=== PATIENT | male | born 1945 | race Caucasian/White ===

== ENCOUNTER 2019-02-08 10:09 | Inpatient (IN) | payer MEDICARE, OTHER, MEDICAID ==
[2019-02-08 10:41] LABS: ADD MAN DIFF? NO
[2019-02-08] MEDS: IPRATROPIUM (NEB) 0.5 MG/2.5 ML AMP INH (11:01)
[2019-02-08] MEDS: ALBUTEROL 0.5% (NEB) 2.5 MG/0.5 ML AMP INH (11:02)
[2019-02-08 11:03] LABS: ANION GAP 8 (5-13); BLOOD UREA NITROGEN 16 mg/dl (7-20); CALCIUM 8.1 mg/dl (8.4-10.2); CARBON DIOXIDE 23 mmol/L (21-31); CHLORIDE 101 mmol/L (97-110); CREATININE 0.62 mg/dl (0.61-1.24); GLUCOSE 183 mg/dl (70-220); INR 1.37; POTASSIUM 3.9 mmol/L (3.5-5.1); PT RATIO 1.3; SODIUM 132 mmol/L (135-144)
[2019-02-08] MEDS: DILTIAZEM 25 MG INJ IV (11:04)
[2019-02-08] MEDS: CEFTRIAXONE 1 GM/50 ML (PMX) 50 ML IVPB (11:05)
[2019-02-08 11:06] LABS: BASOPHILS % 0.1 % (0.0-2.0); EOSINOPHILS % 0.3 % (0.0-7.0); HEMATOCRIT 33.1 % (42.0-52.0); HEMOGLOBIN 10.1 g/dl (14.0-18.0); LYMPHOCYTES # 0.9 10^3/ul (0.8-2.9); LYMPHOCYTES % 10.5 % (15.0-51.0); MEAN CORPUSCULAR HEMOGLOBIN 24.5 pg (29.0-33.0); MEAN CORPUSCULAR HGB CONC 30.5 g/dl (32.0-37.0); MEAN CORPUSCULAR VOLUME 80.3 fl (82.0-101.0); MEAN PLATELET VOLUME 8.3 fl (7.4-10.4); MONOCYTE # 0.9 10^3/ul (0.3-0.9); NEUTROPHIL # 6.8 10^3/ul (1.6-7.5); NEUTROPHILS % 78.9 % (39.0-77.0); PLATELET COUNT 410 10^3/UL (140-415); RED BLOOD COUNT 4.12 10^6/ul (4.70-6.10); RED CELL DISTRIBUTION WIDTH 17.5 % (11.5-14.5)
[2019-02-08 11:06] LABS: WHITE BLOOD COUNT 8.6 10^3/ul (4.8-10.8)
[2019-02-08 11:15] LABS: B-TYPE NATRIURETIC PEPTIDE 2880 PG/ML (0-125); TROPONIN-I < 0.012 ng/ml (0.000-0.120)
[2019-02-08] MEDS: SOD CHLORIDE 0.9% 1,000 ML IV (11:16)
[2019-02-08] MEDS: AZITHROMYCIN 500MG/NS (PMX) 250 ML IV (11:51)
[2019-02-08] MEDS ORDERED: ONDANSETRON 4 MG INJ IV ×2 (12:30→14:30)
[2019-02-08] MEDS ORDERED: ACETAMINOPHEN 325 MG TAB PO (12:30)
[2019-02-08] MEDS: DILTIAZEM-D5W 125MG/125ML DRIP 125 ML IV (13:17)
[2019-02-08 13:25] LABS: LACTIC ACID 2.1 mmol/L (0.5-2.0)
[2019-02-08] MEDS ORDERED: NACL 0.9% 3 ML SYG IV (14:30)
[2019-02-08] MEDS ORDERED: BISACODYL 10 MG SUPP PR (14:30)
[2019-02-08] MEDS ORDERED: SENNA TAB PO (14:30)
[2019-02-08 15:23] LABS: LACTIC ACID 1.6 mmol/L (0.5-2.0)
[2019-02-08] MEDS: FENTAnyl PATCH 12 MCG/HR TRANSDERM (15:30)
[2019-02-08] MEDS: FUROSEMIDE 20 MG INJ IV ×2 (17:15→21:51)
[2019-02-08] MEDS: ALBUTEROL 0.083% (NEB) 2.5 MG/3 ML AMP NEB (22:10)
[2019-02-08 22:57] LABS: ADD UMIC NO; UR ASCORBIC ACID NEGATIVE (NEGATIVE); UR BILIRUBIN (Dip) NEGATIVE (NEGATIVE); UR BLOOD (Dip) NEGATIVE (NEGATIVE); UR CLARITY CLEAR (CLEAR); UR COLOR YELLOW (YELLOW); UR GLUCOSE (Dip) NEGATIVE (NEGATIVE); UR KETONES (Dip) NEGATIVE (NEGATIVE); UR LEUKOCYTE ESTERASE (Dip) NEGATIVE Leu/ul (NEGATIVE); UR NITRITE (Dip) NEGATIVE (NEGATIVE); UR SPECIFIC GRAVITY (Dip) 1.009 (1.003-1.030); UR TOTAL PROTEIN (Dip) NEGATIVE (NEGATIVE); UR UROBILINOGEN (Dip) NEGATIVE (NEGATIVE)
[2019-02-09] MEDS: AMIODARONE 900 MG in DEXTROSE 5% 482 ML IV (03:08)
[2019-02-09] MEDS ORDERED: PENDING SANTYL ORDER FOR WOUND CARE XX (04:00)
[2019-02-09] MEDS: PANTOPRAZOLE (EC) 40 MG TAB PO ×2 (06:00→09:54)
[2019-02-09] MEDS ORDERED: FUROSEMIDE 40 MG TAB PO (09:00)
[2019-02-09] MEDS ORDERED: NON-FORMULARY/PATIENT OWN MED (Umeclidinium Brm-Vilanterol Tr (Anoro Ellipta) 1 EACH) INHALATION (09:00)
[2019-02-09] MEDS: ASPIRIN 81 MG TAB PO (09:53)
[2019-02-09] MEDS: FUROSEMIDE 20 MG INJ IV ×2 (09:53→20:35)
[2019-02-09] MEDS: FOLIC ACID 1 MG TAB PO (09:54)
[2019-02-09] MEDS: ENOXAPARIN 40 MG/0.4 ML SYG SC (09:56)
[2019-02-09] MEDS: MAGNESIUM HYDROXIDE 30ML CUP PO (09:57)
[2019-02-09] MEDS ORDERED: CEFTRIAXONE 1 GM/50 ML (PMX) 50 ML IVPB (11:00)
[2019-02-09] MEDS: AMIODARONE 200 MG TAB PO ×2 (11:56→20:35)
[2019-02-09] MEDS ORDERED: AZITHROMYCIN 500MG/NS (PMX) 250 ML IVPB (12:00)
[2019-02-09 15:23] LABS: ADD MAN DIFF? NO
[2019-02-09 15:25] LABS: WHITE BLOOD COUNT 9.5 10^3/ul (4.8-10.8)
[2019-02-09 15:25] LABS: BASOPHILS % 0.1 % (0.0-2.0); EOSINOPHILS % 0.4 % (0.0-7.0); HEMATOCRIT 30.3 % (42.0-52.0); HEMOGLOBIN 9.3 g/dl (14.0-18.0); LYMPHOCYTES # 0.9 10^3/ul (0.8-2.9); MEAN CORPUSCULAR HEMOGLOBIN 25.1 pg (29.0-33.0); MEAN CORPUSCULAR HGB CONC 30.7 g/dl (32.0-37.0); MEAN CORPUSCULAR VOLUME 81.7 fl (82.0-101.0); MEAN PLATELET VOLUME 8.2 fl (7.4-10.4); MONOCYTES % 10.3 % (0.0-11.0); NEUTROPHIL # 7.6 10^3/ul (1.6-7.5); NEUTROPHILS % 79.9 % (39.0-77.0); PLATELET COUNT 392 10^3/UL (140-415); RED BLOOD COUNT 3.71 10^6/ul (4.70-6.10); RED CELL DISTRIBUTION WIDTH 17.3 % (11.5-14.5)
[2019-02-09] MEDS: [UNRECOGNIZED DRUG - OTHER] XX ×2 (15:30→23:30)
[2019-02-09 15:46] LABS: ALANINE AMINOTRANSFERASE 31 IU/L (13-69); ALBUMIN/GLOBULIN RATIO 0.83; ALKALINE PHOSPHATASE 133 IU/L (42-121); ANION GAP 7 (5-13); ASPARTATE AMINO TRANSFERASE 26 IU/L (15-46); BILIRUBIN,INDIRECT 0.4 mg/dl (0-1.1); BILIRUBIN,TOTAL 0.4 mg/dl (0.2-1.3); BLOOD UREA NITROGEN 15 mg/dl (7-20); CALCIUM 7.6 mg/dl (8.4-10.2); CARBON DIOXIDE 23 mmol/L (21-31); CHLORIDE 101 mmol/L (97-110); CREATININE 0.63 mg/dl (0.61-1.24); GLUCOSE 158 mg/dl (70-220); MAGNESIUM 2.4 mg/dl (1.7-2.5); PHOSPHORUS 2.9 mg/dl (2.5-4.9); POTASSIUM 3.4 mmol/L (3.5-5.1); SODIUM 131 mmol/L (135-144); TOTAL PROTEIN 6.6 g/dl (6.1-8.1)
[2019-02-09 15:46] LABS: HEMOGLOBIN A1C 5.4 % (0-5.9)
[2019-02-10] MEDS: HYDROCODONE/APAP (5/325) TAB PO ×2 (05:23→14:14)
[2019-02-10] MEDS: [UNRECOGNIZED DRUG - OTHER] XX ×3 (07:30→23:30)
[2019-02-10] MEDS: MAGNESIUM HYDROXIDE 30ML CUP PO (08:51)
[2019-02-10] MEDS: FOLIC ACID 1 MG TAB PO (08:51)
[2019-02-10] MEDS: ASPIRIN 81 MG TAB PO (08:51)
[2019-02-10] MEDS: FUROSEMIDE 40 MG TAB PO (08:52)
[2019-02-10] MEDS: AMIODARONE 200 MG TAB PO ×2 (08:53→21:34)
[2019-02-10] MEDS: METOPROLOL (XL) 25 MG TAB PO (08:53)
[2019-02-10] MEDS: POTASSIUM CHLORIDE 20 MEQ POWDER FOR ORAL SOLN PO (08:53)
[2019-02-11] MEDS: HYDROCODONE/APAP (5/325) TAB PO ×4 (01:19→21:23)
[2019-02-11] MEDS: PANTOPRAZOLE (EC) 40 MG TAB PO (06:27)
[2019-02-11] MEDS: [UNRECOGNIZED DRUG - OTHER] XX ×3 (07:30→23:30)
[2019-02-11] MEDS: FOLIC ACID 1 MG TAB PO (09:04)
[2019-02-11] MEDS: MAGNESIUM HYDROXIDE 30ML CUP PO (09:04)
[2019-02-11] MEDS: FUROSEMIDE 40 MG TAB PO (09:04)
[2019-02-11] MEDS: ASPIRIN 81 MG TAB PO (09:04)
[2019-02-11] MEDS: AMIODARONE 200 MG TAB PO ×2 (09:05→21:16)
[2019-02-11] MEDS: METOPROLOL (XL) 25 MG TAB PO (09:05)
[2019-02-11] MEDS: FENTAnyl PATCH 12 MCG/HR TRANSDERM (16:51)
[2019-02-12] MEDS: HYDROCODONE/APAP (5/325) TAB PO ×4 (01:43→20:52)
[2019-02-12] MEDS: PANTOPRAZOLE (EC) 40 MG TAB PO (05:42)
[2019-02-12] MEDS: [UNRECOGNIZED DRUG - OTHER] XX ×3 (07:30→23:30)
[2019-02-12] MEDS: MAGNESIUM HYDROXIDE 30ML CUP PO (09:00)
[2019-02-12] MEDS: ASPIRIN 81 MG TAB PO (09:13)
[2019-02-12] MEDS: METOPROLOL (XL) 25 MG TAB PO (09:13)
[2019-02-12] MEDS: AMIODARONE 200 MG TAB PO ×2 (09:13→20:53)
[2019-02-12] MEDS: FUROSEMIDE 40 MG TAB PO (09:13)
[2019-02-12] MEDS: FOLIC ACID 1 MG TAB PO (09:13)
[2019-02-13] MEDS: PANTOPRAZOLE (EC) 40 MG TAB PO (06:08)
[2019-02-13] MEDS: [UNRECOGNIZED DRUG - OTHER] XX ×2 (07:30→15:30)
[2019-02-13] MEDS: FUROSEMIDE 40 MG TAB PO (09:53)
[2019-02-13] MEDS: AMIODARONE 200 MG TAB PO (09:56)
[2019-02-13] MEDS: ASPIRIN 81 MG TAB PO (09:57)
[2019-02-13] MEDS: METOPROLOL (XL) 25 MG TAB PO (09:57)
[2019-02-13] MEDS: MAGNESIUM HYDROXIDE 30ML CUP PO (09:57)
[2019-02-13] MEDS: FOLIC ACID 1 MG TAB PO (09:57)
[2019-02-13] MEDS: HYDROCODONE/APAP (5/325) TAB PO ×2 (09:59→13:07)
[2019-02-13] MEDS: HYDROmorphONE 2 MG TAB PO ×2 (11:23→13:51)
[2019-02-13] MEDS ORDERED: POTASSIUM CHLORIDE (SR) 20 MEQ TAB PO (11:41)
[2019-02-13] MEDS: POTASSIUM CHLORIDE 20 MEQ POWDER FOR ORAL SOLN PO (13:07)
== END 2019-02-13 18:26 | DRG 308 ==
LOC: E/R 10:09 → MS1 02-13 00:20 → TEL 12:06
PROVIDERS: Internal Medicine
DX: I48.92 Unspecified atrial flutter (principal); I50.23 Acute on chronic systolic (congestive) heart failure; J91.0 Malignant pleural effusion; C78.7 Secondary malignant neoplasm of liver and intrahepatic bile duct; C78.00 Secondary malignant neoplasm of unspecified lung; C79.31 Secondary malignant neoplasm of brain; J44.1 Chronic obstructive pulmonary disease with (acute) exacerbation; E87.70 Fluid overload, unspecified; C80.1 Malignant (primary) neoplasm, unspecified; R54 Age-related physical debility; I25.10 Atherosclerotic heart disease of native coronary artery without angina pectoris; S42.001A Fracture of unspecified part of right clavicle, initial encounter for closed fracture; G89.3 Neoplasm related pain (acute) (chronic); Z87.891 Personal history of nicotine dependence; Z95.5 Presence of coronary angioplasty implant and graft
CPT/HCPCS: 36415; 71045; 80048; 80053; 81003; 83036; 83605; 83735; 83880; 84100; 84443; 84484; 85025; 85610; 87040-91; 87081; 87086; 92526; 92610; 93005; 93306; 93971; 94644; 94664; 96361; 96374; 96375; 97162; 97530; 99285-25

== ENCOUNTER 2019-03-01 21:36 | Inpatient (IN) | payer MEDICARE, OTHER ==
[~2019-03-01 21:36] MED LIST: ETOMIDATE 20 MG INJ; ROCURONIUM 50 MG INJ
[2019-03-01] MEDS: PROPOFOL 100 ML IV (21:51)
[2019-03-01] MEDS: metroNIDAZOLE 500 MG/NS (PMX) 100 ML IVPB (21:51)
[2019-03-01] MEDS: VANCOMYCIN 1 GM (PMX) 250 ML IVPB (21:51)
[2019-03-01 22:03] LABS: WHITE BLOOD COUNT 30.4 10^3/ul (4.8-10.8)
[2019-03-01 22:03] LABS: ABNORMAL IP MESSAGE 1; HEMATOCRIT 42.9 % (42.0-52.0); MEAN CORPUSCULAR HEMOGLOBIN 24.6 pg (29.0-33.0); MEAN CORPUSCULAR HGB CONC 30.3 g/dl (32.0-37.0); MEAN CORPUSCULAR VOLUME 81.1 fl (82.0-101.0); MEAN PLATELET VOLUME 9.3 fl (7.4-10.4); PLATELET COUNT 239 10^3/UL (140-415); POSITIVE DIFF @See below; RED BLOOD COUNT 5.29 10^6/ul (4.70-6.10); RED CELL DISTRIBUTION WIDTH 18.5 % (11.5-14.5)
[2019-03-01 22:09] LABS: ADD MAN DIFF? YES
[2019-03-01 22:10] LABS: PATH REVIEW? YES
[2019-03-01 22:20] LABS: ALANINE AMINOTRANSFERASE 17 IU/L (13-69); ALBUMIN 2.1 g/dl (3.3-4.9); ALBUMIN/GLOBULIN RATIO 0.77; ALKALINE PHOSPHATASE 117 IU/L (42-121); ANION GAP 10 (5-13); ASPARTATE AMINO TRANSFERASE 17 IU/L (15-46); BILIRUBIN,INDIRECT 0.3 mg/dl (0-1.1); BILIRUBIN,TOTAL 0.3 mg/dl (0.2-1.3); BLOOD UREA NITROGEN 49 mg/dl (7-20); CALCIUM 7.2 mg/dl (8.4-10.2); CARBON DIOXIDE 21 mmol/L (21-31); CHLORIDE 113 mmol/L (97-110); CREATININE 0.87 mg/dl (0.61-1.24); GLUCOSE 181 mg/dl (70-220); POTASSIUM 4.8 mmol/L (3.5-5.1); SODIUM 144 mmol/L (135-144); TOTAL PROTEIN 4.8 g/dl (6.1-8.1)
[2019-03-01] MEDS: SODIUM CHLORIDE 0.9% 1L BAG IV* (22:20)
[2019-03-01] MEDS: ACETAMINOPHEN 650MG/20.3ML CUP NGT (22:21)
[2019-03-01] MEDS ORDERED: MIDAZOLAM 1 MG/ML 2 ML INJ (22:21)
[2019-03-01] MEDS: CEFEPIME 2GM/50 ML (PMX) 50 ML IVPB (22:21)
[2019-03-01 22:24] LABS: INR 1.51; PROTIME 18.3 Sec (11.9-14.9); PT RATIO 1.4
[2019-03-01 22:25] LABS: PARTIAL THROMBOPLASTIN TIME 26.5 Sec (23.0-35.0)
[2019-03-01] MEDS: MIDAZOLAM 1 MG/ML 2 ML INJ IV (22:30)
[2019-03-01 22:31] LABS: TROPONIN-I < 0.012 ng/ml (0.000-0.120)
[2019-03-01 22:50] LABS: ADD UMIC YES; UR ASCORBIC ACID 40 mg/dL (NEGATIVE); UR BILIRUBIN (Dip) NEGATIVE (NEGATIVE); UR BLOOD (Dip) NEGATIVE (NEGATIVE); UR CLARITY SLIGHTLY CLOUDY (CLEAR); UR COLOR AMBER (YELLOW); UR GLUCOSE (Dip) NEGATIVE (NEGATIVE); UR KETONES (Dip) NEGATIVE (NEGATIVE); UR LEUKOCYTE ESTERASE (Dip) TRACE Leu/ul (NEGATIVE); UR NITRITE (Dip) NEGATIVE (NEGATIVE); UR RBC 4 /HPF (0-5); UR SPECIFIC GRAVITY (Dip) 1.024 (1.003-1.030); UR TOTAL PROTEIN (Dip) NEGATIVE (NEGATIVE); UR UROBILINOGEN (Dip) 1+ mg/dL (NEGATIVE); UR WBC 4 /HPF (0-5)
[2019-03-01 22:57] LABS: ANISOCYTOSIS 1+ (0-0); BAND NEUTROPHILS #M 6.3 10^3/ul (0.0-0.6); BAND NEUTROPHILS % (M) 21 % (0-4); LYMPHOCYTES #M 0.6 10^3/ul (0.8-2.9); LYMPHOCYTES % (M) 2 % (15-51); METAMYELOCYTES #M 0.3 10^3/ul (0.0-0.0); METAMYELOCYTES %M 1 % (0-0); MONOCYTE #M 0.3 10^3/ul (0.3-0.9); MONOCYTES % (M) 1 % (0-11); PLATELET ESTIMATE NORMAL; POIKILOCYTOSIS 2+ (0-0); POLYCHROMASIA 3+ (0-0); SEG NEUT #M 24.7 10^3/ul (1.6-7.5); SEGMENTED NEUTROPHILS (M) % 75 % (39-77); SMUDGE%M 5 % (0-0)
[2019-03-01] MEDS: NORepinephrine 8MG/250 ML (PMX 250 ML IV (23:00)
[2019-03-02 00:03] LABS: AADO2 Arterial 336.7 mmHg (7.0-24.0); Arterial Base Excess -9.7 mmol/L (-3.0-3); Arterial Blood Gas Oxygen Sat 99.3 mmHG (95.0-100.0); Arterial COHb 0.6 % (0.0-3.0); Arterial Fraction of Oxyhgb 98.6 % (93.0-99.0); Arterial HCO3 18.4 mmol/L (22.0-26.0); Arterial MetHb 0.1 % (0.0-1.5); Arterial pCO2 49.4 mmhg (35-45); MODE VENT - AC; Site LB
[2019-03-02 00:36] LABS: LACTIC ACID 0.7 mmol/L (0.5-2.0)
[2019-03-02] MEDS: DEXTROSE 5%-0.45% NACL 1,000 ML IV ×3 (00:57→20:43)
[2019-03-02] MEDS ORDERED: ONDANSETRON 4 MG INJ IV (01:00)
[2019-03-02] MEDS ORDERED: ACETAMINOPHEN 650MG/20.3ML CUP PO (01:00)
[2019-03-02] MEDS ORDERED: ALBUTEROL HFA 8 GM INHALER INH (01:00)
[2019-03-02] MEDS ORDERED: IPRATROPIUM (HFA) 12.9 GM INHALER INH (01:00)
[2019-03-02 01:40] LABS: HEMOGLOBIN A1C 5.7 % (0-5.9)
[2019-03-02 03:43] LABS: LACTIC ACID 3.9 mmol/L (0.5-2.0)
[2019-03-02] MEDS ORDERED: PHENYLephrine 20MG IN 250 ML 250 ML ×2 (04:13→08:22)
[2019-03-02] MEDS: ASPIRIN 81 MG TAB PO ×2 (04:54→08:42)
[2019-03-02] MEDS: PIPER-TAZO 3.375 GM IV (PMX) 100 ML IVPB ×3 (05:21→17:26)
[2019-03-02] MEDS: PANTOPRAZOLE 40 MG INJ IV (05:21)
[2019-03-02] MEDS: SOD CHLORIDE 0.9% 500 ML IV (05:23)
[2019-03-02 05:25] LABS: WHITE BLOOD COUNT 48.9 10^3/ul (4.8-10.8)
[2019-03-02 05:25] LABS: ABNORMAL IP MESSAGE 1; HEMATOCRIT 43.9 % (42.0-52.0); HEMOGLOBIN 13.1 g/dl (14.0-18.0); MEAN CORPUSCULAR HEMOGLOBIN 24.6 pg (29.0-33.0); MEAN CORPUSCULAR HGB CONC 29.8 g/dl (32.0-37.0); MEAN CORPUSCULAR VOLUME 82.4 fl (82.0-101.0); MEAN PLATELET VOLUME 10.1 fl (7.4-10.4); PLATELET COUNT 259 10^3/UL (140-415); POSITIVE DIFF @See below; RED BLOOD COUNT 5.33 10^6/ul (4.70-6.10); RED CELL DISTRIBUTION WIDTH 18.7 % (11.5-14.5)
[2019-03-02 05:33] LABS: ADD MAN DIFF? YES
[2019-03-02 05:52] LABS: ALANINE AMINOTRANSFERASE 24 IU/L (13-69); ALBUMIN 1.9 g/dl (3.3-4.9); ALBUMIN/GLOBULIN RATIO 0.79; ALKALINE PHOSPHATASE 120 IU/L (42-121); ANION GAP 7 (5-13); ASPARTATE AMINO TRANSFERASE 14 IU/L (15-46); BILIRUBIN,INDIRECT 0.3 mg/dl (0-1.1); BILIRUBIN,TOTAL 0.3 mg/dl (0.2-1.3); BLOOD UREA NITROGEN 48 mg/dl (7-20); CALCIUM 6.9 mg/dl (8.4-10.2); CARBON DIOXIDE 21 mmol/L (21-31); CHLORIDE 114 mmol/L (97-110); CREATININE 1.24 mg/dl (0.61-1.24); GLUCOSE 186 mg/dl (70-220); MAGNESIUM 3.1 mg/dl (1.7-2.5); PHOSPHORUS 4.4 mg/dl (2.5-4.9); POTASSIUM 4.8 mmol/L (3.5-5.1); SODIUM 142 mmol/L (135-144); TOTAL PROTEIN 4.3 g/dl (6.1-8.1)
[2019-03-02 06:18] LABS: LACTIC ACID 4.1 mmol/L (0.5-2.0)
[2019-03-02] MEDS ORDERED: VANCOMYCIN 1.5 GM/NS 250 ML 250 ML IVPB (07:00)
[2019-03-02 07:24] LABS: AADO2 Arterial 287.5 mmHg (7.0-24.0); Allen Test ACCEPTAB; Arterial Base Excess -10.4 mmol/L (-3.0-3); Arterial Blood Gas Oxygen Sat 96.6 mmHG (95.0-100.0); Arterial COHb 0.8 % (0.0-3.0); Arterial Fraction of Oxyhgb 95.5 % (93.0-99.0); Arterial HCO3 16.1 mmol/L (22.0-26.0); Arterial MetHb 0.3 % (0.0-1.5); Arterial pCO2 37.9 mmhg (35-45); MODE VENT - AC; Site Right Radial
[2019-03-02 08:03] LABS: ANISOCYTOSIS 1+ (0-0); BAND NEUTROPHILS #M 16.6 10^3/ul (0.0-0.6); BAND NEUTROPHILS % (M) 34 % (0-4); BURR CELLS 3+ (0-0); LYMPHOCYTES #M 0.4 10^3/ul (0.8-2.9); LYMPHOCYTES % (M) 1 % (15-51); MONOCYTE #M 0.4 10^3/ul (0.3-0.9); MONOCYTES % (M) 1 % (0-11); MYELOCYTES #M 0.9 10^3/ul (0.0-0.0); MYELOCYTES % (M) 2 % (0-0); PLATELET ESTIMATE NORMAL; POIKILOCYTOSIS 3+ (0-0); POLYCHROMASIA 3+ (0-0); SEG NEUT #M 38.4 10^3/ul (1.6-7.5); SEGMENTED NEUTROPHILS (M) % 62 % (39-77); SMUDGE%M 47 % (0-0)
[2019-03-02 08:04] LABS: TOXIC GRANULATION 3+ (0-0)
[2019-03-02] MEDS: AMIODARONE 200 MG TAB PO (08:43)
[2019-03-02] MEDS ORDERED: VANCOMYCIN IV PER PHARMACY XX (09:00)
[2019-03-02] MEDS: HEPARIN 5,000 UNIT/1 ML VIAL SC ×2 (12:13→20:58)
[2019-03-02] MEDS: PHENYLephrine 80 MG in DEXTROSE 5% 242 ML IV ×3 (13:01→22:02)
[2019-03-02] MEDS: NORepinephrine 32 MG in DEXTROSE 5% 218 ML IV (13:11)
[2019-03-02] MEDS: VASOPRESSIN 60 UNIT in DEXTROSE 5% 57 ML IV ×2 (14:00→20:59)
[2019-03-02] MEDS: VANCOMYCIN 1.5 GM/NS 250 ML 250 ML IVPB (16:24)
[2019-03-02] MEDS ORDERED: VANCOMYCIN 1 GM 250 ML IVPB (19:00)
[2019-03-03] MEDS: PIPER-TAZO 3.375 GM IV (PMX) 100 ML IVPB ×4 (00:30→18:19)
[2019-03-03] MEDS: DEXTROSE 5%-0.45% NACL 1,000 ML IV ×2 (01:39→15:42)
[2019-03-03] MEDS: PHENYLephrine 80 MG in DEXTROSE 5% 242 ML IV ×4 (02:20→15:52)
[2019-03-03] MEDS: NORepinephrine 32 MG in DEXTROSE 5% 218 ML IV (03:26)
[2019-03-03 05:07] LABS: ADD MAN DIFF? NO
[2019-03-03 05:10] LABS: ABNORMAL IP MESSAGE 1; BASOPHIL # 0.1 10^3/ul (0.0-0.1); BASOPHILS % 0.5 % (0.0-2.0); HEMATOCRIT 41.9 % (42.0-52.0); HEMOGLOBIN 12.3 g/dl (14.0-18.0); LYMPHOCYTES # 0.9 10^3/ul (0.8-2.9); MEAN CORPUSCULAR HEMOGLOBIN 24.8 pg (29.0-33.0); MEAN CORPUSCULAR HGB CONC 29.4 g/dl (32.0-37.0); MEAN CORPUSCULAR VOLUME 84.6 fl (82.0-101.0); MEAN PLATELET VOLUME 10.1 fl (7.4-10.4); MONOCYTE # 1.4 10^3/ul (0.3-0.9); MONOCYTES % 4.8 % (0.0-11.0); NEUTROPHIL # 25.3 10^3/ul (1.6-7.5); NEUTROPHILS % 87.9 % (39.0-77.0); NUCLEATED RED BLOOD CELLS% 0.1 /100WBC (0.0-0.0); PLATELET COUNT 172 10^3/UL (140-415); POSITIVE DIFF @See below; RED BLOOD COUNT 4.95 10^6/ul (4.70-6.10); RED CELL DISTRIBUTION WIDTH 18.3 % (11.5-14.5)
[2019-03-03 05:10] LABS: WHITE BLOOD COUNT 28.8 10^3/ul (4.8-10.8)
[2019-03-03 05:35] LABS: CREATININE 1.53 mg/dl (0.61-1.24)
[2019-03-03 05:35] LABS: BLOOD UREA NITROGEN 61 mg/dl (7-20)
[2019-03-03] MEDS: PANTOPRAZOLE 40 MG INJ IV (06:11)
[2019-03-03] MEDS: AMIODARONE 200 MG TAB PO (09:00)
[2019-03-03] MEDS: ASPIRIN 81 MG TAB PO (09:00)
[2019-03-03] MEDS: HEPARIN 5,000 UNIT/1 ML VIAL SC ×2 (09:26→20:47)
[2019-03-03] MEDS: ACETAMINOPHEN 650 MG SUPP PR ×2 (09:29→16:14)
[2019-03-03 10:21] LABS: ANION GAP 7 (5-13); BLOOD UREA NITROGEN 49 mg/dl (7-20); CARBON DIOXIDE 14 mmol/L (21-31); CHLORIDE 101 mmol/L (97-110); CREATININE 1.11 mg/dl (0.61-1.24); SODIUM 122 mmol/L (135-144)
[2019-03-03 11:05] LABS: GLUCOSE 728 mg/dl (70-220)
[2019-03-03 11:07] LABS: CALCIUM 4.6 mg/dl (8.4-10.2)
[2019-03-03] MEDS: CALCIUM GLUCONATE 10% 2 GM in DEXTROSE 5% 100 ML IVPB (13:44)
[2019-03-03] MEDS: VASOPRESSIN 60 UNIT in DEXTROSE 5% 57 ML IV (14:00)
[2019-03-03] MEDS: ARTIFICIAL TEARS 15 ML OPH BOTH EYES (20:43)
[2019-03-03] MEDS: NORepinephrine 32 MG in SOD CHLORIDE 0.9% 218 ML IV (20:47)
[2019-03-03] MEDS: VASOPRESSIN 60 UNIT in SOD CHLORIDE 0.9% 57 ML IV (20:47)
[2019-03-03] MEDS: PHENYLephrine 80 MG in SOD CHLORIDE 0.9% 242 ML IV (20:47)
[2019-03-04] MEDS: PIPER-TAZO 3.375 GM IV (PMX) 100 ML IVPB ×3 (00:34→11:30)
[2019-03-04] MEDS: PHENYLephrine 80 MG in SOD CHLORIDE 0.9% 242 ML IV ×3 (00:36→09:41)
[2019-03-04] MEDS: DEXTROSE 5%-0.45% NACL 1,000 ML IV (03:42)
[2019-03-04] MEDS: PANTOPRAZOLE 40 MG INJ IV (05:33)
[2019-03-04 06:25] LABS: ADD MAN DIFF? NO
[2019-03-04] MEDS: DEXTROSE 5%-0.9% NACL 1,000 ML IV (06:31)
[2019-03-04] MEDS: ALTEPLASE (CATHFLO) 2 MG INJ CATHETER (06:37)
[2019-03-04 06:38] LABS: ABNORMAL IP MESSAGE 1; HEMATOCRIT 41.7 % (42.0-52.0); HEMOGLOBIN 12.2 g/dl (14.0-18.0); LYMPHOCYTES # 1.5 10^3/ul (0.8-2.9); MEAN CORPUSCULAR HEMOGLOBIN 24.5 pg (29.0-33.0); MEAN CORPUSCULAR HGB CONC 29.3 g/dl (32.0-37.0); MEAN CORPUSCULAR VOLUME 83.9 fl (82.0-101.0); MEAN PLATELET VOLUME 10.9 fl (7.4-10.4); MONOCYTE # 1.8 10^3/ul (0.3-0.9); MONOCYTES % 4.7 % (0.0-11.0); NEUTROPHIL # 33.1 10^3/ul (1.6-7.5); NEUTROPHILS % 87.7 % (39.0-77.0); NUCLEATED RED BLOOD CELLS% 0.1 /100WBC (0.0-0.0); PLATELET COUNT 140 10^3/UL (140-415); POSITIVE DIFF @See below; RED BLOOD COUNT 4.97 10^6/ul (4.70-6.10); RED CELL DISTRIBUTION WIDTH 18.6 % (11.5-14.5)
[2019-03-04 06:38] LABS: WHITE BLOOD COUNT 37.7 10^3/ul (4.8-10.8)
[2019-03-04 07:16] LABS: VANCOMYCIN,RANDOM 8.3 ug/ml
[2019-03-04 07:20] LABS: ANION GAP 8 (5-13); BLOOD UREA NITROGEN 72 mg/dl (7-20); CALCIUM 6.4 mg/dl (8.4-10.2); CARBON DIOXIDE 15 mmol/L (21-31); CHLORIDE 111 mmol/L (97-110); CREATININE 1.88 mg/dl (0.61-1.24); GLUCOSE 172 mg/dl (70-220); MAGNESIUM 2.9 mg/dl (1.7-2.5); PHOSPHORUS 4.6 mg/dl (2.5-4.9); POTASSIUM 5.4 mmol/L (3.5-5.1); SODIUM 134 mmol/L (135-144)
[2019-03-04] MEDS: VASOPRESSIN 60 UNIT in SOD CHLORIDE 0.9% 57 ML IV (08:00)
[2019-03-04] MEDS: ARTIFICIAL TEARS 15 ML OPH BOTH EYES ×2 (08:51→12:48)
[2019-03-04] MEDS: HEPARIN 5,000 UNIT/1 ML VIAL SC (08:55)
[2019-03-04] MEDS: ASPIRIN 81 MG TAB PO (09:00)
[2019-03-04] MEDS: AMIODARONE 200 MG TAB PO (09:00)
[2019-03-04] MEDS: VANCOMYCIN 1 GM 250 ML IVPB (09:23)
[2019-03-04] MEDS: morphine 2 MG INJ IV (09:29)
[2019-03-04] MEDS ORDERED: GLUCOSE GEL 15 GRAM TUBE BUCCAL (09:30)
[2019-03-04] MEDS ORDERED: DEXTROSE 50% 50 ML SYRINGE IV ×2 (09:30)
[2019-03-04] MEDS ORDERED: GLUCOSE GEL 15 GRAM TUBE PO ×2 (09:30)
[2019-03-04] MEDS ORDERED: GLUCAGON 1 MG INJ IM (09:30)
[2019-03-04 10:03] LABS: ADD UMIC YES; UR AMORPHOUS CRYSTAL MANY /HPF (NONE SEEN); UR ASCORBIC ACID 20 mg/dL (NEGATIVE); UR BACTERIA FEW /HPF (NONE SEEN); UR BILIRUBIN (Dip) NEGATIVE (NEGATIVE); UR BLOOD (Dip) 2+ mg/dL (NEGATIVE); UR CLARITY CLOUDY (CLEAR); UR COLOR AMBER (YELLOW); UR GLUCOSE (Dip) NEGATIVE (NEGATIVE); UR KETONES (Dip) TRACE mg/dL (NEGATIVE); UR LEUKOCYTE ESTERASE (Dip) TRACE Leu/ul (NEGATIVE); UR NITRITE (Dip) NEGATIVE (NEGATIVE); UR RBC 60 /HPF (0-5); UR SQUAMOUS EPITHELIAL CELL FEW /HPF (FEW); UR TOTAL PROTEIN (Dip) 2+ mg/dl (NEGATIVE); UR UROBILINOGEN (Dip) NEGATIVE (NEGATIVE); UR WBC 10 /HPF (0-5)
[2019-03-04 10:42] LABS: CREATININE,URINE RANDOM 117.68 mg/dl (20-370)
[2019-03-04 10:57] LABS: SODIUM,URINE RANDOM < 13 mmol/L (30-90)
[2019-03-04] MEDS: INSULIN ASPART [NOVOLOG] 3 ML PEN SC (11:34)
[2019-03-04] MEDS: HYDROCORTISONE 100 MG INJ IV (12:48)
[2019-03-04] MEDS: metroNIDAZOLE 500 MG/NS (PMX) 100 ML IVPB (13:09)
[2019-03-04] MEDS: FENTAnyl (DRIP) 1000 mcg/100mL 100 ML IV (13:11)
[2019-03-04] MEDS: NORepinephrine 32 MG in SOD CHLORIDE 0.9% 218 ML IV ×2 (13:13→14:19)
[2019-03-04] MEDS: morphine (DRIP) 100 MG/100 ML 100 ML IV (19:38)
== END 2019-03-04 21:13 | disposition expired | DRG 871 ==
LOC: E/R 21:36 → ICU 23:58
PROC: 5A1945Z Respiratory Ventilation, 24-96 Consecutive Hours (ICD-10-PCS; principal; 2019-03-01)
PROC: 0BH17EZ Insertion of Endotracheal Airway into Trachea, Via Natural or Artificial Opening (ICD-10-PCS; 2019-03-01)
PROC: 02HV33Z Insertion of Infusion Device into Superior Vena Cava, Percutaneous Approach (ICD-10-PCS; 2019-03-01)
PROC: B544ZZA Ultrasonography of Left Jugular Veins, Guidance (ICD-10-PCS; 2019-03-01)
PROC: 4A133R1 Monitoring of Arterial Saturation, Peripheral, Percutaneous Approach (ICD-10-PCS; 2019-03-01)
DX: A41.1 Sepsis due to other specified staphylococcus (principal); R65.21 Severe sepsis with septic shock; J96.01 Acute respiratory failure with hypoxia; G92 Toxic encephalopathy; A04.72 Enterocolitis due to Clostridium difficile, not specified as recurrent; C78.7 Secondary malignant neoplasm of liver and intrahepatic bile duct; C78.5 Secondary malignant neoplasm of large intestine and rectum; C79.31 Secondary malignant neoplasm of brain; I50.32 Chronic diastolic (congestive) heart failure; E87.1 Hypo-osmolality and hyponatremia; N17.9 Acute kidney failure, unspecified; I48.92 Unspecified atrial flutter; E87.4 Mixed disorder of acid-base balance; C78.00 Secondary malignant neoplasm of unspecified lung; Z51.5 Encounter for palliative care; Z66 Do not resuscitate; C80.1 Malignant (primary) neoplasm, unspecified; F03.90 Unspecified dementia, unspecified severity, without behavioral disturbance, psychotic disturbance, mood disturbance, and anxiety; I11.0 Hypertensive heart disease with heart failure; I25.10 Atherosclerotic heart disease of native coronary artery without angina pectoris; I48.91 Unspecified atrial fibrillation; Z95.5 Presence of coronary angioplasty implant and graft; Z79.82 Long term (current) use of aspirin
CPT/HCPCS: 31500; 36415; 36600; 71045; 76942; 80048; 80053; 80202; 81001; 81003; 82565; 82803; 82962; 83036; 83605; 83735; 84100; 84155; 84300; 84484; 84520; 85025; 85610; 85730; 86850; 86900; 86901; 87040-91; 87045; 87075; 87081; 87086; 93005; 94002; 94003; 94770; 96365; 96366; 96368; 99291-25